=== PATIENT | female | born 1985 | race Caucasian/White ===

== ENCOUNTER 2019-10-21 08:12 | Emergency (ER) | payer SELFPAY ==
[2019-10-21 08:37] VITALS: BP 122/78; PULSE 108; RESP 16; TEMP 37.7; O2SAT 99
--- NOTE | 2019-10-21 08:43 | ED.URI ---
HPI - URI/Sore Throat General Chief Complaint: Upper Respiratory Infection Stated Complaint: Cough/Fever/Sinus Congestion Time Seen by Provider: 10/21/19 08:43 Source: patient and RN notes reviewed Mode of arrival: ambulatory Limitations: no limitations History of Present Illness HPI Narrative: 34-year-old female presents with concern for fever, cough, sinus pressure, headache, body aches that started last night. Denies taking any medications for her symptoms. Reports fever up to 102. MD elicited complaint: cough Related Data Allergies Allergy/AdvReac Type Severity Reaction Status Date / Time adhesive tape Allergy Unknown Rash Verified 10/21/19 08:43 Review of Systems Review of Systems: Narrative: CONSTITUTIONAL: Reports malaise, chills, sweats, or fever. EYES: Denies visual changes, redness, or discharge. ENT: Reports rhinorrhea, congestion. Denies sinus pain, otalgia and sore throat. CARDIOVASCULAR: Denies chest pain, palpitations, or edema. RESPIRATORY: Reports cough. Denies dyspnea. GASTROINTESTINAL: Denies abdominal pain, nausea, vomiting, diarrhea SKIN: Denies rash or itching. MUSCULOSKELETAL: Reports myalgia. NEUROLOGIC: Reports headache. All systems reviewed & are unremarkable except as noted in HPI and below PMFSH Social History Social History Gender identity (if verbalized by the patient): Female Comments At time of signature, agree with nursing past medical, surgical, social and family history. There is no relevant family history pertinent to the presenting complaint Exam Narrative: Exam Narrative: GENERAL: Well-appearing, well-nourished, and in no acute distress. HEAD: Normocephalic EYES: PERRLA, conjunctivae clear ENT: Nares clear, turbinates edematous and erythematous, clear discharge. Mucous membranes moist. TM pearly aguirre with dull light reflex bilaterally; no tragal tenderness. Oropharynx erythematous without lesions. Tonsils not enlarged and without exudate, no drooling, no hoarseness, no trismus. NECK: Supple. No lymphadenopathy CHEST: Clear to auscultation, breath sounds equal. No wheezing, rhonchi, rales, or stridor. No respiratory distress, speaks in full sentences. Cough noted HEART: Regular rate and rhythm. No murmur heard. Normal peripheral pulses. SKIN: Warm, dry, no rash. NEURO: Alert and oriented x3. PSYCH: Normal mood and affect Course Course Emergency Course: Patient is aware of diagnosis, understands and agrees to treatment plan. Anticipatory guidance given. Patient agrees to follow-up as directed and is aware of reasons to seek care at the emergency department. Portions of this record may have been created with voice recognition software Vital Signs Vital signs: Vital Signs Temperature 99.9 F H 10/21/19 08:37 Pulse Rate 108 H 10/21/19 08:37 Respiratory Rate 16 10/21/19 08:37 Blood Pressure 122/78 10/21/19 08:37 Pulse Oximetry 99 10/21/19 08:37 Temperature 99.9 F H 10/21/19 08:37 Pulse Rate 108 H 10/21/19 08:37 Respiratory Rate 16 10/21/19 08:37 Blood Pressure 122/78 10/21/19 08:37 Pulse Oximetry 99 10/21/19 08:37 Reviewed. MDM - URI/Sore Throat MDM Narrative Medical decision making narrative: Differential diagnosis considered: Strep pharyngitis, allergic rhinitis, upper respiratory tract infection, sinusitis, rhinosinusitis, nasopharyngitis. viral pharyngitis, otitis media, otitis externa, pneumonia, bronchitis, viral cough syndrome, viral syndrome, and influenza. Exam findings show no acute concerns or changes; patient is non-toxic appearing and is in no distress. Patient is appropriate for outpatient treatment and follow-up. Lab Data Attestation: I reviewed the patient's lab results. Labs: Influenza A Screen Positive Reference Range: Negative Influenza B Screen Negative Reference Range: Negative Critical Care Time Critical Care Time Critical Care Time: No Discharge Plan Discharge Clinical
== END 2019-10-21 08:57 | disposition home or self-care (01) ==
PROVIDERS: Emergency Provider Nurse Practitioner
DX: J10.1 Influenza due to other identified influenza virus with other respiratory manifestations (principal)
CPT/HCPCS: 87804; 99213; G0463

== ENCOUNTER 2021-03-29 01:05 | Day surgery (SDC) | payer OTHER, SELFPAY ==
[2021-03-15 14:11] VITALS: BMI 22.8
--- NOTE | 2021-03-28 15:51 | WPDANESEPPF ---
Anes - Initial Pre Proc Eval Procedure: Operation Date: 03/29/21 07:30 Proposed Procedures p Esophagogastroduodenoscopy & Colonoscopy - Carson Birmingham MD Date/Time: 03/28/21 15:51 Surgeon: Carson Birmingham MD Pre Op Diagnosis: GERD, diarrhea, rectal bleeding, nausea/vomiting Patient Data Age: 35 Gender: F Height: 1.7 m Weight: 66 kg Allergies Allergy/AdvReac Type Severity Reaction Status Date / Time adhesive tape Allergy Unknown Rash Verified 03/29/21 06:27 Home Medications Medication Instructions Recorded Confirmed Type citalopram 10 mg tablet 10 mg PO DAILY 02/16/21 03/29/21 History omeprazole 20 mg capsule,delayed 20 mg PO DAILY #30 cap 02/16/21 03/29/21 Rx release norethindrone (contraceptive) 0.35 mg PO DAILY 03/15/21 03/29/21 History [[facility]] Patient hx anesthesia problems: none Family hx anesthesia problems: none PMFSH Past Medical History Medical History (Updated 02/16/21 @ 16:39 by EFFIE Jarvis) Frequent loose stools GERD (gastroesophageal reflux disease) Marijuana use Nausea and vomiting Weight loss Social History Social History Years smoked: 4 Smoking status: Former smoker Tobacco type: cigarettes Alcohol intake: current Alcohol use details: 0.5 pints a day Substance use type: marijuana Other substance usage details: daily Living arrangements: with family Gender identity (if verbalized by the patient): Female Spiritual care concerns: No Anes - Eval Final PreProcedure Day of Procedure 03/28/21 15:51 Patient weight: normal Heart: regular rate and rhythm Lungs: clear to auscultation and normal air movement Airway: Mallampati scale class II Neurological: alert and oriented Last oral intake: >/= 8 hours ASA classification: II Emergent: no Anesthetic plan: proceed Anesthesia type and monitoring: general GIVS Informed Consent: The patient's anesthetic plan and its attendant risks and benefits were discussed with the patient/family/POA. Questions were solicited and answers provided to the satisfaction of the patient/family/POA.
[2021-03-29] MEDS: LACTATED RINGERS 1,000 ML 150 ML IV CONT (06:41)
[2021-03-29 06:42] VITALS: BP 141/93; PULSE 96; RESP 16; TEMP 36.3; O2SAT 100; BMI 20.9
--- NOTE | 2021-03-29 07:32 | PM.HPGS ---
History of Present Illness History of Present Illness Consent: Risks, benefits, and alternatives have been discussed and questions answered. Patient agrees to proceed with procedure. Chief complaint: GERD, diarrhea, rectal bleeding, nausea/vomiting Narrative: Mandie Jackson is a 35 year old female with gerd but better since started using omeprazole daily, also 5 months of intermittent blood in stools and loose stools. Never had scopes Review of Systems Constitutional: Constitutional: Denies headache(s) and Denies weakness Eyes: Eyes: Denies blurry vision ENT: Reports Normal hearing present, Denies headache(s) and Denies neck pain Cardiovascular: Cardiovascular: Denies chest pain and Denies dyspnea Respiratory: Respiratory: Denies dyspnea Gastrointestinal: Gastrointestinal: Reports no additional gastrointestinal complaints Genitourinary: Genitourinary: Denies dysuria Musculoskeletal: Musculoskeletal: Denies neck pain Integumentary/Breasts: Skin/Breast: Denies dry skin Neurologic: Reports Normal hearing present, Denies headache(s) and Denies weakness Psychiatric: Psychiatric: Denies anxiety Endocrine: Endocrine: Denies change in body appearance Hematologic/Lymphatic: Hematologic/Lymphatic: Denies easy bleeding Allergic/Immunologic: Allergic/Immunologic: Denies urticaria PMFSH Past Medical History Medical History (Updated 03/29/21 @ 07:33 by Carson Birmingham MD) Blood in stool Frequent loose stools GERD (gastroesophageal reflux disease) Marijuana use Nausea and vomiting Weight loss Social History Social History Years smoked: 4 Smoking status: Former smoker Tobacco type: cigarettes Alcohol intake: current Alcohol use details: 0.5 pints a day Substance use type: marijuana Other substance usage details: daily Living arrangements: with family Gender identity (if verbalized by the patient): Female Spiritual care concerns: No Meds Home Medications and Allergies Home Medications Medication Instructions Recorded Confirmed Type citalopram 10 mg tablet 10 mg PO DAILY 02/16/21 03/29/21 History omeprazole 20 mg capsule,delayed 20 mg PO DAILY #30 cap 02/16/21 03/29/21 Rx release norethindrone (contraceptive) 0.35 mg PO DAILY 03/15/21 03/29/21 History [Incassia] Allergies Allergy/AdvReac Type Severity Reaction Status Date / Time adhesive tape Allergy Unknown Rash Verified 03/29/21 06:27 Vital Signs Vital Signs - 24 hr 03/29/21 06:42 Temperature 97.4 F L Pulse Rate 96 Respiratory Rate 16 Blood Pressure 141/93 H Pulse Oximetry 100 Exam Const: General: comfortable and no acute distress HENMT: General nose exam: Normal nares present Eyes: General: appearance normal, both eyes and all related structures Neck: Neck: no JVD Resp: Auscultation: clear to auscultation bilaterally Cardio: Rate: regular rate Rhythm: regular rhythm GI: Inspection: non-distended GI Palp: Yes Soft to palpation Skin: General skin exam: normal color Neuro: General: gait normal Speech: normal speech Extrem: General: normal to inspection Psych: Mental Status: mental status grossly normal Assessment and Plan Assessment and plan (1) Frequent loose stools: Code(s): R19.7 - Diarrhea, unspecified Status: Acute (2) Blood in stool: Code(s): K92.1 - Melena Status: Acute Assessment and Plan: colonoscopy (3) GERD (gastroesophageal reflux disease): Code(s): K21.9 - Gastro-esophageal reflux disease without esophagitis Status: Acute Assessment and Plan: gerd with bx, better with ppi
[2021-03-29] MEDS: BENZOCAINE (*SP) 60 ML SPRAY CAN (HURRICAINE) 1 SPRAY MUCOUS MEM (07:37)
[2021-03-29 08:05] VITALS: BP 117/83; PULSE 76; RESP 18; O2SAT 100
[2021-03-29 08:15] VITALS: BP 122/81; PULSE 75; RESP 18; O2SAT 98
[2021-03-29 08:22] VITALS: BP 139/95; PULSE 80; RESP 20; O2SAT 100
== END 2021-03-29 08:35 | disposition home or self-care (01) ==
PROVIDERS: Visit Provider Internal Medicine Gastroenterology
PROC: 0DJ08ZZ Inspection of Upper Intestinal Tract, Via Natural or Artificial Opening Endoscopic (ICD-10-PCS; CPT 43235; principal; 2021-03-29 07:30)
DX: R19.7 Diarrhea, unspecified (principal); K92.1 Melena; K63.5 Polyp of colon; K64.8 Other hemorrhoids; K64.4 Residual hemorrhoidal skin tags; K44.9 Diaphragmatic hernia without obstruction or gangrene; K21.9 Gastro-esophageal reflux disease without esophagitis; K29.50 Unspecified chronic gastritis without bleeding; F12.90 Cannabis use, unspecified, uncomplicated; Z87.891 Personal history of nicotine dependence
CPT/HCPCS: 45380; 45385; 43239; 88305; J2704; J7120

== ENCOUNTER 2022-12-09 12:39 | Emergency (ER) | payer OTHER, SELFPAY ==
--- NOTE | 2022-12-09 12:41 | ED.URI ---
HPI - URI/Sore Throat General Chief Complaint: Upper Respiratory Infection Stated Complaint: Ears Irritation/Throat Time Seen by Provider: 12/09/22 13:31 Source: patient and RN notes reviewed Mode of arrival: ambulatory Limitations: no limitations History of Present Illness HPI Narrative: 37-year-old female presents with concern for one-week history of sinus congestion, sinus pressure, sinus drainage, ear pain, ear pressure, ear pain. Reports ear pain has worsened. Reports she has an taking multiple [id number] medications without relief of her symptoms. MD elicited complaint: cough, nasal congestion and other (Ear pain) Related Data Allergies Allergy/AdvReac Type Severity Reaction Status Date / Time adhesive tape Allergy Unknown Rash Verified 12/09/22 13:05 Review of Systems Review of Systems: CONSTITUTIONAL: Reports malaise. Denies chills, sweats, or fever. EYES: Denies visual changes, redness, or discharge. ENT: Reports rhinorrhea, congestion, sinus pain, otalgia and sore throat. CARDIOVASCULAR: Denies chest pain, palpitations, or edema. RESPIRATORY: Reports cough. Denies dyspnea. GASTROINTESTINAL: Denies abdominal pain, nausea, vomiting, diarrhea SKIN: Denies rash or itching. MUSCULOSKELETAL: Denies myalgia. NEUROLOGIC: Denies headache. All systems reviewed & are unremarkable except as noted in HPI and below PMFSH Past Medical History Medical History (Updated 12/09/22 @ 13:37 by Rubi Perales NP) Blood in stool Frequent loose stools GERD (gastroesophageal reflux disease) Marijuana use Nausea and vomiting Weight loss Social History Social History Years smoked: 4 Smoking status: Former smoker Tobacco type: cigarettes Alcohol intake: current Alcohol use details: 0.5 pints a day Substance use type: marijuana Other substance usage details: daily Living arrangements: with family Gender identity (if verbalized by the patient): Female Spiritual care concerns: No Comments At time of signature, agree with nursing past medical, surgical, social and family history. There is no relevant family history pertinent to the presenting complaint Exam Narrative: GENERAL: Well-appearing, well-nourished, and in no acute distress. HEAD: Normocephalic EYES: PERRLA, conjunctivae clear ENT: Nares clear, turbinates edematous and erythematous. Mucous membranes moist. Right TM erythematous and bulging, left TM pearly aguirre with dull light reflex; no tragal tenderness. Oropharynx not erythematous without lesions. Tonsils not enlarged and without exudate, no drooling, no hoarseness, no trismus, uvula midline. NECK: Supple. No lymphadenopathy CHEST: Clear to auscultation, breath sounds equal. No wheezing, rhonchi, rales, or stridor. No respiratory distress, speaks in full sentences. Cough noted HEART: Regular rate and rhythm. No murmur heard. SKIN: Warm, dry, no rash. NEURO: Alert and oriented x3. PSYCH: Normal mood and affect Course Course Emergency Course: Patient is aware of diagnosis, understands and agrees to treatment plan. Anticipatory guidance given. Patient agrees to follow-up as directed and is aware of reasons to seek care at the emergency department. Portions of this record may have been created with voice recognition software Level of Care: Express Care Visit Vital Signs Vital signs: Reviewed. MDM - URI/Sore Throat MDM Narrative Medical decision making narrative: Differential diagnosis considered: Lopez virus, strep pharyngitis, allergic rhinitis, upper respiratory tract infection, sinusitis, rhinosinusitis, nasopharyngitis. viral pharyngitis, otitis media, otitis externa, pneumonia, bronchitis, viral cough syndrome, viral syndrome, and influenza. Exam findings show no acute concerns or changes; patient is non-toxic appearing and is in no distress. Patient is appropriate for outpatient treatment and follow-up. Lab Data Attestation: I
[2022-12-09 13:07] VITALS: BP 132/90; PULSE 113; RESP 16; TEMP 36.6; O2SAT 100
== END 2022-12-09 13:43 | disposition home or self-care (01) ==
PROVIDERS: Emergency Provider Nurse Practitioner
DX: J32.9 Chronic sinusitis, unspecified (principal); H66.001 Acute suppurative otitis media without spontaneous rupture of ear drum, right ear; Z87.891 Personal history of nicotine dependence; K21.9 Gastro-esophageal reflux disease without esophagitis; F12.90 Cannabis use, unspecified, uncomplicated
CPT/HCPCS: 99213; G0463

== ENCOUNTER 2023-04-26 08:07 | Emergency (ER) | payer OTHER, SELFPAY ==
[2023-04-26 08:20] VITALS: BP 155/106; PULSE 98; RESP 16; TEMP 37.3; O2SAT 100
--- NOTE | 2023-04-26 08:47 | ED.EYEPROB ---
HPI - Eye Problem General Chief complaint: Eye Problems Stated complaint: Right Eye Irritation Time Seen by Provider: 04/26/23 08:32 Source: patient and RN notes reviewed Mode of arrival: ambulatory Limitations: no limitations History of Present Illness HPI Narrative: Patient presents today complaining of a scratch to her right eye yesterday. States her small dog scratched her eye accidentally. She is having some difficulty seeing and photophobia. Currently rates her pain 6/10 and has been using some lubricating eyedrops without much relief. She did make an appointment with an eye doctor, but could not be seen until May. Related Data Home Medications Medication Instructions Recorded Confirmed pantoprazole 40 mg tablet,delayed 40 mg PO DAILY 04/26/23 04/26/23 release Allergies Allergy/AdvReac Type Severity Reaction Status Date / Time adhesive tape Allergy Unknown Rash Verified 04/26/23 08:32 acetaminophen [From Tylenol] Allergy Swelling Verified 04/26/23 08:32 Review of Systems Review of Systems: CONSTITUTIONAL: Denies body aches, fever, chills, or sweats. EYES: + right eye pain, photophobia, difficulty seeing ENT: Denies rhinorrhea, congestion, sore throat, or otalgia. CARDIOVASCULAR: Denies chest pain, palpitations, or edema. RESPIRATORY: Denies cough or dyspnea. GASTROINTESTINAL: Denies abdominal pain, nausea, vomiting, or diarrhea. GENITOURINARY: Denies dysuria or hematuria. SKIN: Denies rash, itching, or wounds. MUSCULOSKELETAL: Denies back pain, joint pain, or myalgia. NEUROLOGIC: Denies headache, numbness, tingling, or weakness. PSYCH: Denies depression or anxiety. [facility] Past Medical History Medical History Blood in stool Frequent loose stools GERD (gastroesophageal reflux disease) Marijuana use Nausea and vomiting Weight loss Social History Social History Years smoked: 4 Smoking status: Former smoker Tobacco type: cigarettes Alcohol intake: current Alcohol use details: 0.5 pints a day Substance use type: marijuana Other substance usage details: daily Living arrangements: with family Gender identity (if verbalized by the patient): Female Spiritual care concerns: No Comments At time of signature, I have reviewed and agree with nursing past medical, surgical, social and family history unless otherwise noted. Please see nursing chart for further information. There is no relevant family history pertinent to the presenting complaint Exam Narrative: GENERAL: Well-appearing, well-nourished, and in no acute distress. HEAD: Normocephalic, atraumatic. EYES: EOMI. Right eye: fluorescein uptake. See procedure note. Left eye normal. ENT: Mucous membranes pink and moist. NECK: Normal AROM. CHEST: No respiratory distress. EXTREMITIES: Normal range of motion. No edema. SKIN: Warm, dry, no rash. Capillary refill normal. Normal skin turgor. NEURO: No focal deficits. Alert and oriented x3. Gait steady. PSYCH: Normal affect. No signs of depression or anxiety. Course Course Level of Care: Express Care Visit Vital Signs Vital signs: Vital Signs Temperature 99.1 F 04/26/23 08:20 Pulse Rate 98 04/26/23 08:20 Respiratory Rate 16 04/26/23 08:20 Blood Pressure 155/106 H 04/26/23 08:20 Pulse Oximetry 100 04/26/23 08:20 Oxygen Delivery Room Air 04/26/23 08:20 Temperature 99.1 F 04/26/23 08:20 Pulse Rate 98 04/26/23 08:20 Respiratory Rate 16 04/26/23 08:20 Blood Pressure 155/106 H 04/26/23 08:20 Pulse Oximetry 100 04/26/23 08:20 Oxygen Delivery Room Air 04/26/23 08:20 Reviewed. Pt has been instructed to follow up with her PCP regarding her elevated blood pressure today. Procedures Other Procedure Procedure 1: Other Procedure: Right eye was anesthetized with 1 drop of tetracaine and a
== END 2023-04-26 09:00 | disposition home or self-care (01) ==
PROVIDERS: Emergency Provider Nurse Practitioner
DX: S05.01XA Injury of conjunctiva and corneal abrasion without foreign body, right eye, initial encounter (principal); W54.8XXA Other contact with dog, initial encounter; K21.9 Gastro-esophageal reflux disease without esophagitis; Z87.891 Personal history of nicotine dependence
CPT/HCPCS: 99213; A9270; G0463

== ENCOUNTER 2023-06-27 08:48 | Emergency (ER) | payer OTHER, SELFPAY ==
--- NOTE | 2023-06-27 08:53 | ED.URI ---
HPI - URI/Sore Throat General Chief Complaint: Upper Respiratory Infection Stated Complaint: Sinus Time Seen by Provider: 06/27/23 08:58 Source: patient, RN notes reviewed and old records reviewed Mode of arrival: ambulatory Limitations: no limitations History of Present Illness HPI Narrative: 37-year-old female presents to the [facility] with complaints of sinus congestion that started 3 days ago. Has been taking [id number] cold medicine, Tylenol, Motrin. Related Data Home Medications Medication Instructions Recorded Confirmed pantoprazole 40 mg tablet,delayed 40 mg PO DAILY 04/26/23 06/27/23 release Allergies Allergy/AdvReac Type Severity Reaction Status Date / Time adhesive tape Allergy Unknown Rash Verified 04/26/23 08:32 acetaminophen [From Tylenol] Allergy Swelling Verified 04/26/23 08:32 Review of Systems Review of Systems: All systems reviewed & are unremarkable except as noted in HPI and below Constitutional: Constitutional: Reports no additional constitutional complaints Eyes: Eyes: Reports no additional eye complaints ENT: Reports as per HPI Cardiovascular: Cardiovascular: Reports no additional cardiovascular complaints, Denies chest pain and Denies dyspnea Respiratory: Respiratory: Reports as per HPI, Denies chest congestion, Reports cough and Denies dyspnea Gastrointestinal: Gastrointestinal: Reports no additional gastrointestinal complaints, Denies abdominal pain, Denies nausea and Denies vomiting Musculoskeletal: Musculoskeletal: Reports no additional musculoskeletal complaints Integumentary/Breasts: Skin/Breast: Reports system reviewed and no additional complaints, except as docu Neurologic: Reports system reviewed and no additional complaints, except as documented Psychiatric: Psychiatric: Reports no additional psychiatric complaints Allergic/Immunologic: Allergic/Immunologic: Reports no additional allergic/immunologic complaints [facility] Past Medical History Medical History Blood in stool Frequent loose stools GERD (gastroesophageal reflux disease) Marijuana use Nausea and vomiting Weight loss Social History Social History Years smoked: 4 Smoking status: Former smoker Tobacco type: cigarettes Alcohol intake: current Alcohol use details: 0.5 pints a day Substance use type: marijuana Other substance usage details: daily Living arrangements: with family Gender identity (if verbalized by the patient): Female Spiritual care concerns: No Comments At the time of my signature, I reviewed and agree with the nursing past medical, surgical, social, and family history. There is no relevant family history pertinent to the patient complaint. Exam Const: General: cooperative, healthy appearing, comfortable, no acute distress, well developed, alert and well nourished Nutritional Appearance: well nourished Orientation/consciousness: patient oriented x3 Limitations: no limitations HENMT: Head: normal to inspection Ears: hearing grossly normal bilaterally and external ears normal Face/Nose/Sinus: Normal external nose present, Normal nares present, Normal nasal mucous membranes and turbinates present, Nasal discharge present clear bilateral, normal facial exam and face symmetric Face and sinus: normal facial exam, sinuses nontender, face symmetric, no ecchymosis and no erythema Mouth: Yes Normal oral and palatal mucosa present, Yes lip normal and Yes moist mucous membranes Throat: posterior oropharynx normal, uvula midline and postnasal drainage Eyes: General: appearance normal, both eyes and all related structures Alignment and Position: alignment normal Periorbital: periorbital findings normal Pupils: Equal, round and reactive pupils present EOM: EOMs intact bilaterally Neck: Neck: normal visual inspection, full ROM, no lymphadenopathy and no meningeal sig
[2023-06-27 08:59] VITALS: BP 155/107; PULSE 108; RESP 16; TEMP 37.2; O2SAT 100
[2023-06-27 09:15] VITALS: BP 156/112
== END 2023-06-27 09:15 | disposition home or self-care (01) ==
PROVIDERS: Emergency Provider Nurse Practitioner
DX: J04.0 Acute laryngitis (principal); J40 Bronchitis, not specified as acute or chronic; R05.1 Acute cough; Z87.891 Personal history of nicotine dependence
CPT/HCPCS: 99213; G0463

== ENCOUNTER 2023-07-24 08:20 | Emergency (ER) | payer OTHER, SELFPAY ==
[2023-07-24 08:37] VITALS: BP 154/101; PULSE 117; RESP 18; TEMP 39.3; O2SAT 100
--- NOTE | 2023-07-24 08:38 | ED.URI ---
HPI - URI/Sore Throat General Chief Complaint: Upper Respiratory Infection Stated Complaint: Fever/Ears Irritation History of Present Illness HPI Narrative: 37-year-old female presented for complaint of Fever, sore throat with pain radiating to the right ear over the past few days. At the onset she had vomiting, which has resolved. She has taken Tylenol and ibuprofen for fever. reports temp up to 103 yesterday. Also reports decreased appetite and painful swallow. She denies shortness of breath, wheezing, or lethargy. Denies known sick contacts. Related Data Home Medications Medication Instructions Recorded Confirmed pantoprazole 40 mg tablet,delayed 40 mg PO DAILY 04/26/23 07/24/23 release Allergies Allergy/AdvReac Type Severity Reaction Status Date / Time adhesive tape Allergy Unknown Rash Verified 07/24/23 08:34 acetaminophen [From Tylenol] Allergy Swelling Verified 07/24/23 08:34 Review of Systems Review of Systems: CONSTITUTIONAL: Denies body aches, fever, chills, or sweats. EYES: Denies visual changes, redness, or discharge. ENT: Denies rhinorrhea, congestion, reports sore throat, otalgia. CARDIOVASCULAR: Denies chest pain, palpitations, or edema. RESPIRATORY: Denies dyspnea. GASTROINTESTINAL: Reports nausea decreased appetite Denies abdominal pain, vomiting, or diarrhea. SKIN: Denies rash, itching, or wounds. MUSCULOSKELETAL: Denies back pain, joint pain, or myalgia. NEUROLOGIC: Denies headache PMFSH Past Medical History Medical History Blood in stool Frequent loose stools GERD (gastroesophageal reflux disease) Marijuana use Nausea and vomiting Weight loss Social History Social History Years smoked: 4 Smoking status: Former smoker Tobacco type: cigarettes Alcohol intake: current Alcohol use details: 0.5 pints a day Substance use type: marijuana Other substance usage details: daily Living arrangements: with family Gender identity (if verbalized by the patient): Female Spiritual care concerns: No Exam Narrative: GENERAL: Mildly Ill-appearing, no acute distress. EYES: conjunctivae clear ENT: Mucous membranes moist. TMs pearly aguirre with normal light reflex bilaterally; no tragal tenderness. Oropharynx severely erythematous tonsils enlarged 2+ without exudate. hoarse voice. No drooling, no trismus, uvula midline. No tripod positioning, hot potato voice, or soft palate swelling. NECK: Supple. Full ROM. Bilateral anterior cervical lymphadenopathy. No induration below mandible. CHEST: Clear to auscultation, breath sounds equal. No respiratory distress, speaks in full sentences. HEART: Regular rate and rhythm. No murmur heard. SKIN: Warm, dry, no rash. NEURO: Alert and oriented x3. Course Course Emergency Course: Patient is aware of diagnosis, understands and agrees to treatment plan. Anticipatory guidance given. Patient agrees to follow-up as directed and is aware of reasons to seek care at the emergency department. Portions of this record may have been created with voice recognition software Level of Care: Express Care Visit Vital Signs Vital signs: Vital Signs Temperature 102.8 F H 07/24/23 08:37 Pulse Rate 117 H 07/24/23 08:37 Respiratory Rate 18 07/24/23 08:37 Blood Pressure 154/101 H 07/24/23 08:37 Pulse Oximetry 100 07/24/23 08:37 Oxygen Delivery Room Air 07/24/23 08:37 Temperature 102.8 F H 07/24/23 08:37 Pulse Rate 117 H 07/24/23 08:37 Respiratory Rate 18 07/24/23 08:37 Blood Pressure 154/101 H 07/24/23 08:37 Pulse Oximetry 100 07/24/23 08:37 Oxygen Delivery Room Air 07/24/23 08:37 MDM - URI/Sore Throat MDM Narrative Medical decision making narrative: POS strep result reviewed with pt. Advise supportive treatments. Patient is appropriate for outpatient treatment and follow-up.
== END 2023-07-24 08:58 | disposition home or self-care (01) ==
PROVIDERS: Emergency Provider Nurse Practitioner Family
DX: J02.0 Streptococcal pharyngitis (principal); Z87.891 Personal history of nicotine dependence; F12.90 Cannabis use, unspecified, uncomplicated; K21.9 Gastro-esophageal reflux disease without esophagitis
CPT/HCPCS: 87880; 99213; G0463